=== PATIENT | female | born 1995 | race Caucasian/White ===

== ENCOUNTER 2018-05-23 00:14 | Emergency (ER) | payer SELFPAY ==
[2018-05-23 00:32] VITALS: BP 131/96; PULSE 116; O2SAT 100
[2018-05-23] MEDS ORDERED: TENIVAC VIAL IM ONE ×2 (00:33→00:35)
[2018-05-23] MEDS ORDERED: MOTRIN 400 MG PO ONE (00:33)
[2018-05-23] MEDS ORDERED: MOTRIN 400 MG ONE (00:35)
[2018-05-23] MEDS ORDERED: BACIGUENT PACKET TP ONE (00:36)
[2018-05-23] MEDS ORDERED: BACIGUENT PACKET ONE (00:38)
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
== END 2018-05-23 01:00 | disposition home or self-care (01) ==
LOC: ED 00:14
DX: T24.112A Burn of first degree of left thigh, initial encounter (principal); T24.111A Burn of first degree of right thigh, initial encounter; X12.XXXA Contact with other hot fluids, initial encounter; Y93.G3 Activity, cooking and baking; Y92.000 Kitchen of unspecified non-institutional (private) residence as the place of occurrence of the external cause
CPT/HCPCS: 90471; 90714; 99283; A9270-GY

== ENCOUNTER 2019-03-14 20:10 | Emergency (ER) | payer OTHER ==
[2019-03-14] MEDS ORDERED: Zofran 4 MG/2 ML VIAL IV ONE (20:45)
[2019-03-14] MEDS ORDERED: Sodium Chloride 0.9% 1000 ML 1,000 ML IV STA (20:45)
--- NOTE | 2019-03-14 20:45 | ERPHSYRPT ---
- History of Present Illness Time Seen by Provider: 03/14/19 20:41 Historian: patient, police Exam Limitations: no limitations Physician History: pt states she is 10-11 weeks and has had burning abd pain and vomiting and had US lst week with a problem - no bleeding below or discharge but was told to see OB yestaerday and had to go to group home instead and presents here now , abd nontender; Timing/Duration: day(s) Activities at Onset: none Quality: burning, sharpness Abdominal Pain Onset Location: epigastric Severity of Pain-Max: moderate Severity of Pain-Current: moderate Modifying Factors: Improves With: nothing Associated Symptoms: nausea, vomiting Previous symptoms: same symptoms as today Allergies/Adverse Reactions: Penicillins Allergy (Mild, Verified 05/23/18 00:32) Hives Sulfa (Sulfonamide Antibiotics) [Sulfa(Sulfonamide Antibiotics)] Allergy (Mild, Verified 05/23/18 00:32) Home Medications: Vits W-Ca,Fe,FA(<1Mg) [] 1 each PO DAILY 03/14/19 [History] Hx Tetanus, Diphtheria Vaccination/Date Given: No Hx Influenza Vaccination/Date Given: Yes Hx Pneumococcal Vaccination/Date Given: No - Review of Systems Constitutional: No Fever, No Chills Eyes: No Symptoms Ears, Nose, & Throat: No Symptoms Respiratory: No Cough, No Dyspnea Cardiac: No Chest Pain, No Edema, No Syncope Abdominal/Gastrointestinal: Abdominal Pain, Nausea, Vomiting, No Diarrhea Genitourinary Symptoms: No Dysuria Musculoskeletal: No Back Pain, No Neck Pain Skin: No Rash Neurological: No Dizziness, No Focal Weakness, No Sensory Changes Psychological: No Symptoms Endocrine: No Symptoms All Other Systems: Reviewed and Negative - Past Medical History Pertinent Past Medical History: No Neurological History: No Pertinent History ENT History: No Pertinent History Cardiac History: No Pertinent History Respiratory History: No Pertinent History Endocrine Medical History: No Pertinent History Musculoskeletal History: No Pertinent History GI Medical History: No Pertinent History History: Other Psycho-Social History: No Pertinent History Female Reproductive Disorders: No Pertinent History - Past Surgical History Past Surgical History: No - Social History Smoking Status: Current every day smoker How long have you smoked: 7 years Exposure to second hand smoke: No Drug Use: none Patient Lives Alone: No - Nursing Vital Signs Nursing Vital Signs: Initial Vital Signs Temperature 98.6 F 03/14/19 20:34 Pulse Rate 74 03/14/19 20:34 Respiratory Rate 16 03/14/19 20:34 Blood Pressure 132/81 03/14/19 20:34 O2 Sat by Pulse Oximetry 99 03/14/19 20:34 Pain Scale Pain Intensity 4 - Physical Exam General Appearance: no apparent distress, alert Eye Exam: PERRL/EOMI, eyes nml inspection Ears, Nose, Throat Exam: normal ENT inspection, pharynx normal, moist mucous membranes Neck Exam: normal inspection, non-tender, supple, full range of motion Respiratory Exam: normal breath sounds, lungs clear, No respiratory distress Cardiovascular Exam: regular rate/rhythm, normal heart sounds Gastrointestinal/Abdomen Exam: soft, No tenderness, No mass Pelvic Exam: deferred Rectal Exam: deferred Back Exam: normal inspection, normal range of motion, No CVA tenderness, No vertebral tenderness Extremity Exam: normal inspection, normal range of motion, pelvis stable Neurologic Exam: alert, oriented x 3, cooperative, normal mood/affect, nml cerebellar function, sensation nml, No motor deficits Skin Exam: normal color, warm, dry - Course Nursing assessment & vital signs reviewed: Yes - Radiology Ultrasound Exam OB Ultrasound: Other (improving subchorio minor heme no other OB pathology reported ) Ordered Tests: Active Orders 24 hr Category Date Time Status IV Insertion STAT Care 03/14/19 20:45 Active NPO (ED) STAT Care 03/14/19 20:45 Active OB <14 WKS 1ST GESTATION [US] Stat Exams 03/14/19 20:46 Taken AMYLASE Stat Lab 03/14/19 21:45 Completed CBC W DIFF Stat Lab 03/14/19 21:45 Completed CMP Stat Lab 03/14/19 21:45 Completed CULTURE,URINE Stat Lab 03/14/19 20:49 Received HCG, Quantitative (Inhouse) Stat Lab 03/14/19 21:45 Completed LIPASE Stat Lab 03/14/19 21:45 Completed Lactic Acid Stat Lab 03/14/19 20:45 Completed UA W/RFX UR CULTURE Stat Lab 03/14/19 20:49 Completed Medication Summary Discontinued Medications Generic Name Dose Route Start Last Admin Trade Name Freq PRN Reason Stop Dose Admin Sodium Chloride 1,000 mls @ 999 mls/hr 03/14/19 20:45 03/14/19 22:03 Sodium Chloride 0.9% 1000 Ml IV 03/14/19 21:45 Infused .Q1H1M STA Infusion Sodium Chloride Confirm 03/14/19 20:51 Sodium Chloride 0.9% 1000 Ml Administered 03/14/19 20:52 Dose 1,000 mls @ ud .ROUTE .STK-MED ONE Ondansetron HCl 4 mg 03/14/19 20:45 03/14/19 21:04 Zofran 4 Mg/2 Ml Vial IV 03/14/19 20:46 4 mg STAT ONE Administration Ondansetron HCl Confirm 03/14/19 20:51 Zofran 4 Mg/2 Ml Vial Administered 03/14/19 20:52 Dose 4 mg .ROUTE .STK-MED ONE Lab/Rad Data: Laboratory Result Diagrams 03/14/19 21:45 03/14/19 21:45 Laboratory Results 03/14/19 03/14/19 03/14/19 Range/Units 21:45 21:45 20:49 WBC 10.0 (4.0-10.5) K/mm3 RBC 4.23 (4.1-5.4) M/mm3 Hgb 13.4 (12.0-16.0) gm/dl Hct 38.7 (35-47) % MCV 91.5 (78-100) fl MCH 31.7 (26-32) pg MCHC 34.6 (32-36) g/dl RDW 12.4 (11.5-14.0) % Plt Count 275 (150-450) K/mm3 MPV 8.5 (6-9.5) fl Gran % 82.1 H (36.0-66.0) % Eos # (Auto) 0 (0-0.5) Absolute Lymphs (auto) 1.25 (1.0-4.6) Absolute Monos (auto) 0.52 (0.0-1.3) Lymphocytes % 12.5 L (24.0-44.0) % Monocytes % 5.2 (0.0-12.0) % Eosinophils % 0.0 (0.00-5.0) % Basophils % 0.2 (0.0-0.4) % Absolute Granulocytes 8.20 H (1.4-6.9) Basophils # 0.02 (0-0.4) Sodium 138 (137-145) mmol/L Potassium 4.0 (3.5-5.1) mmol/L Chloride 103 (98-107) mmol/L Carbon Dioxide 21 L (22-30) mmol/L Anion Gap 17.5 H (5-15) MEQ/L BUN 7 (7-17) mg/dL Creatinine 0.42 L (0.52-1.04) mg/dL Estimated GFR > 60.0 ML/MIN Glucose 86 (74-106) mg/dL Lactic Acid (0.4-2.0) Calcium 10.3 H (8.4-10.2) mg/dL Total Bilirubin 1.20 (0.2-1.3) mg/dL AST 19 (14-36) U/L ALT 10 (0-35) U/L Alkaline Phosphatase 49 (38-126) U/L Serum Total Protein 7.9 (6.3-8.2) g/dL Albumin 4.5 (3.5-5.0) g/dL Amylase 57 (30-110) U/L Lipase 23 (23-300) U/L Beta HCG, Quant 337213 mIU/ml Urine Color YELLOW (YELLOW) Urine Appearance CLOUDY (CLEAR) Urine pH 6.0 (5-6) Ur Specific Glover 1.025 (1.005-1.025) Urine Protein 30 (Negative) Urine Ketones MODERATE (NEGATIVE) Urine Blood NEGATIVE (0-5) Mateo/ul Urine Nitrite NEGATIVE (NEGATIVE) Urine Bilirubin NEGATIVE (NEGATIVE) Urine Urobilinogen NEGATIVE (0-1) mg/dL Ur Leukocyte Esterase TRACE (NEGATIVE) Urine WBC (Auto) 11-15 (0-5) /HPF Urine RBC (Auto) 3-5 (0-2) /HPF U Epithel Cells (Auto) RARE (FEW) /HPF Urine Bacteria (Auto) FEW (NEGATIVE) /HPF Urine Mucus (Auto) MANY (NEGATIVE) /HPF Urine Culture Reflexed YES (NO) Urine Glucose NEGATIVE (NEGATIVE) mg/dL 03/14/19 Range/Units 20:45 WBC (4.0-10.5) K/mm3 RBC (4.1-5.4) M/mm3 Hgb (12.0-16.0) gm/dl Hct (35-47) % MCV (78-100) fl MCH (26-32) pg MCHC (32-36) g/dl RDW (11.5-14.0) % Plt Count (150-450) K/mm3 MPV (6-9.5) fl Gran % (36.0-66.0) % Eos # (Auto) (0-0.5) Absolute Lymphs (auto) (1.0-4.6) Absolute Monos (auto) (0.0-1.3) Lymphocytes % (24.0-44.0) % Monocytes % (0.0-12.0) % Eosinophils % (0.00-5.0) % Basophils % (0.0-0.4) % Absolute Granulocytes (1.4-6.9) Basophils # (0-0.4) Sodium (137-145) mmol/L Potassium (3.5-5.1) mmol/L Chloride (98-107) mmol/L Carbon Dioxide (22-30) mmol/L Anion Gap (5-15) MEQ/L BUN (7-17) mg/dL Creatinine (0.52-1.04) mg/dL Estimated GFR ML/MIN Glucose (74-106) mg/dL Lactic Acid 1.2 (0.4-2.0) Calcium (8.4-10.2) mg/dL Total Bilirubin (0.2-1.3) mg/dL AST (14-36) U/L ALT (0-35) U/L Alkaline Phosphatase (38-126) U/L Serum Total Protein (6.3-8.2) g/dL Albumin (3.5-5.0) g/dL Amylase (30-110) U/L Lipase (23-300) U/L Beta HCG, Quant mIU/ml Urine Color (YELLOW) Urine Appearance (CLEAR) Urine pH (5-6) Ur Specific Glover (1.005-1.025) Urine Protein (Negative) Urine Ketones (NEGATIVE) Urine Blood (0-5) Mateo/ul Urine Nitrite (NEGATIVE) Urine Bilirubin (NEGATIVE) Urine Urobilinogen (0-1) mg/dL Ur Leukocyte Esterase (NEGATIVE) Urine WBC (Auto) (0-5) /HPF Urine RBC (Auto) (0-2) /HPF U Epithel Cells (Auto) (FEW) /HPF Urine Bacteria (Auto) (NEGATIVE) /HPF Urine Mucus (Auto) (NEGATIVE) /HPF Urine Culture Reflexed (NO) Urine Glucose (NEGATIVE) mg/dL - Progress Progress: improved, re-examined Progress Note: 03/14/19 21:49 no epigastric or RUQ tenderness on exam - pt choses no furhter testing in ER given discussion of risk benefit and is comfortable with DC and OB f/u as outpt. US shows stable tiny subchor heme improving and all else without pathology. 03/14/19 23:03 pt symptoms resolved in er . pt was advised that we have not determined a precise cause for her abd pain and that additional pathology could still be evolving with need of further w/u and she prefers DC with f/u PCP/OB outpt to any furhter w/u in ER at this time. Abd now soft and nontender. pt advised of borderline UTI and discussed treatment options , but has no symptms; discussed risks and benefits including that asympt UTI frequently treated in to avoid complications- but she is allergic to pcn and sulfa , and wishes to discuss keflex with her OB; so she will f/u OB for that tx/furhter eval and declines tx at this time. Counseled pt/family regarding: lab results, diagnosis, need for follow-up, rad results - Departure Departure Disposition: Home Clinical Impression: Abdominal pain in , stable-improving subchorionic hemorhage, Nausea and vomiting during , borderline UTI without urinary symptoms Condition: Good Critical Care Time: No Referrals: SUSIE MARC [Emergency Provider] - Instructions: Acute Abdomen (Belly Pain), Adult (DC), Nausea and Vomiting of (DC), Urinary Tract Infection, Adult (DC) Additional Instructions: followup with your OB this week and return meantime if further concerns meantime. have urine rechecked with your OB to consider treatment as you have results on UA which show there probably is some infection although you do not have symptoms yet . We have not yet determined a precise cause for your abdominal pain and there could still be additional problems developing and requiring further workup with your drs. return meantime if vomiting persists or further concerns.
[2019-03-14] MEDS ORDERED: Sodium Chloride 0.9% 1000 ML 1,000 ML ONE (20:51)
[2019-03-14] MEDS ORDERED: Zofran 4 MG/2 ML VIAL ONE (20:51)
[2019-03-14 21:45] LABS: BASOPHIL % 0.2 % (0.0-0.4); Basophil (Absolute #) 0.02 (0-0.4); Eosinophil (Absolute #) 0 (0-0.5); Granulocytes % 82.1 % (36.0-66.0); Hematocrit 38.7 % (35-47); Hemoglobin 13.4 gm/dl (12.0-16.0); Lymphocyte (Absolute #) 1.25 (1.0-4.6); Lymphocytes % 12.5 % (24.0-44.0); Mean Cell Volume 91.5 fl (78-100); Mean Corpuscular Hemoglobin 31.7 pg (26-32); Mean Corpuscular Hgb Concent. 34.6 g/dl (32-36); Mean Platelet Volume 8.5 fl (6-9.5); Monocyte (Absolute #) 0.52 (0.0-1.3); Monocytes % 5.2 % (0.0-12.0); Platelet Count 275 K/mm3 (150-450); Red Blood Count 4.23 M/mm3 (4.1-5.4); Red Cell Distribution Width 12.4 % (11.5-14.0)
[2019-03-14 21:52] LABS: Appearance CLOUDY (CLEAR); Bacteria FEW /HPF (NEGATIVE); Bilirubin NEGATIVE (NEGATIVE); Blood NEGATIVE Ery/ul (0-5); Epithelial Cells RARE /HPF (FEW); Glucose NEGATIVE (NEGATIVE); Ketones MODERATE (NEGATIVE); Leukocyte Esterase TRACE (NEGATIVE); Mucus MANY /HPF (NEGATIVE); Nitrite NEGATIVE (NEGATIVE); Protein,Urine Dip 30 (Negative); Specific Gravity 1.025 (1.005-1.025); Urobilinogen NEGATIVE mg/dL (0-1)
[2019-03-14 22:15] LABS: ALBUMIN 4.5 g/dL (3.5-5.0); ALKALINE PHOSPHATASE 49 U/L (38-126); AMYLASE 57 U/L (30-110); ANION GAP 17.5 MEQ/L (5-15); BLOOD UREA NITROGEN 7 mg/dL (7-17); CHLORIDE 103 mmol/L (98-107); Calcium 10.3 mg/dL (8.4-10.2); Carbon Dioxide 21 mmol/L (22-30); Creatinine 1 0.42 mg/dL (0.52-1.04); Glucose 86 mg/dL (74-106); LIPASE 23 U/L (23-300); SGOT/AST 19 U/L (14-36); SGPT/ALT 10 U/L (0-35); SODIUM 138 mmol/L (137-145); Total Protein 7.9 g/dL (6.3-8.2)
[2019-03-14 22:40] LABS: HCG, Quantitative (Inhouse) 140330 mIU/ml
[2019-03-14 23:54] VITALS: BP 117/68; PULSE 74; O2SAT 99
--- NOTE | 2019-03-15 09:39 | XRAY ---
Indication: Vomiting. 2-dimensional early OB ultrasound performed. Comparison: February 27, 2019. Again there is a single intrauterine gestational sac with presence of a single pole. Mean crown-rump length measures 3.77 cm corresponding to 10 weeks 5 days. heart rate 176 BPM. Previous subchorionic hemorrhage appears smaller measuring 5 x 7 mm. Left and right ovaries sonographically unremarkable. Again no suspicious adnexal mass or free fluid. Impression: Again single viable intrauterine with mean gestational age 10 weeks 5 days. Normal progression of . Previous subchorionic hemorrhage appears smaller. Comment: Preliminary report was given.
== END 2019-03-14 23:55 | disposition home or self-care (01) ==
LOC: ED 20:10
DX: O23.41 Unspecified infection of urinary tract in pregnancy, first trimester (principal); R10.9 Unspecified abdominal pain; R11.2 Nausea with vomiting, unspecified
CPT/HCPCS: 36000; 36415; 76801; 80053; 81001; 82150; 83605; 83690; 84702; 85025; 87077; 87086; 87186; 96360; 96374; 99284; J2405